=== PATIENT | male | born 1990 | race Two or more races ===

== ENCOUNTER 2018-10-15 14:07 | Emergency (ER) | payer SELFPAY ==
[~2018-10-15] VITALS: Ht 236.2 cm; Wt 104.0 kg
[2018-10-15 19:50] VITALS: BP 129/77
== END 2018-10-15 20:42 | disposition home or self-care (01) ==
LOC: ER 14:07
DX: S83.429A Sprain of lateral collateral ligament of unspecified knee, initial encounter (principal); F17.200 Nicotine dependence, unspecified, uncomplicated; X58.XXXA Exposure to other specified factors, initial encounter; Y93.89 Activity, other specified; Y92.89 Other specified places as the place of occurrence of the external cause; Y99.8 Other external cause status
CPT/HCPCS: 99282